=== PATIENT | male | born 1960 | race Caucasian/White ===

== ENCOUNTER 2018-10-24 10:00 | Observation (INO) | payer BC, OTHER ==
--- NOTE | 2018-10-24 10:33 | ED.PDOC ---
History of Present Illness - General Chief Complaint: GI Problem Stated Complaint: vomitting, excessive weight loss Time Seen by Provider: 10/24/18 10:27 Information Source: patient - History of Present Illness Initial Comments: THIS PATIENT COMES FROM THE CLINIC. HE HAS BEEN HAVING VOMITING AND DIARRHEA SINCE SATURDAY, AVERAGE 7 EPISODES OF VOMITING PER 24 HRS AND ABOUT FOUR EPISODES OF DIARRHEA PER 24 HRS. THIS IS ASSOCIATED WITH INTERMITTENT ABDOMINAL PAIN AND LOWGRADE FEVER. HE VOICES POST PRANDIAL EMESIS WELL AND THE CLINIC NOTED AN 18 POUND WEIGHT LOSS SINCE HIS LAST VISIT 3 WEEKS. AGO. 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 THE PATIENT WAS GIVEN ZOFRAN SUBLINGUAL AND WAS SENT TO THE ED FOR EVALUATION. LABORATORY WAS ALSO OBTAINED AT THE CLINIC: CBC; WBC-10.6, 73 % NEUTROPHILS, HB OF 15.5. CREATININE OF 0.8, BUN OF 21, CO2 OF 26. THE PATIENT HAS A LEFT HIP REPLACEMENT AND CHRONIC BACK PAIN - ON PAIN MANAGEMENT BY DR. MATA Abdominal Pain Onset Location: generalized abdomen Pain Radiation: no radiation Quality: cramping, intermittent Timing/Duration: days Improving Factors: nothing Worsening Factors: eating Associated Symptoms: diarrhea, nausea/vomiting Review of Systems - Review of Systems Constitutional: States: fever, weakness EENTM: States: no symptoms reported Respiratory: States: no symptoms reported Cardiology: States: no symptoms reported Gastrointestinal/Abdominal: States: abdominal pain, diarrhea, vomiting Genitourinary: States: no symptoms reported Musculoskeletal: States: no symptoms reported Skin: States: no symptoms reported Neurological: States: no symptoms reported Endocrine: States: no symptoms reported Hematologic/Lymphatic: States: no symptoms reported Past Medical History (General) - Patient Medical History Hx Stroke: No Hx of COPD: No Hx Cardiac Disorders: Yes - aortic valve replacement Hx Congestive Heart Failure: No Hx Diabetes: No Surgical History: other - Vaccination History Hx Tetanus, Diphtheria Vaccination: No Hx Influenza Vaccination: No Hx Pneumococcal Vaccination: No Immunizations Up to Date: No - Social History Hx Tobacco Use: Yes Hx Alcohol Use: No Hx Substance Use: No Hx Substance Use Treatment: No Hx Depression: No Family Medical History - Family History Mother Family History: Unknown Living Status: Father Family History: Unknown Living Status: Physical Exam - Physical Exam General Appearance: Alert, No apparent distress, Well Developed, Well Groomed, Well Hydrated Eyes, Ears, Nose, Throat Exam: PERRL/EOMI Neck: non-tender Respiratory: chest non-tender Cardiovascular/Chest: normal peripheral pulses, regular rate, rhythm Gastrointestinal/Abdominal: normal bowel sounds, soft, no organomegaly, no pulsatile mass Back Exam: normal inspection Extremity: normal range of motion Skin Exam: normal color Progress - Progress Progress: 10/24/18 11:03 CASE DISCUSSED WITH ANDREWS TAPIA - WILL OBSERVE OVERNIGHT FOR INTRACTABLE VOMIT AND WEIGHT LOSS. Departure - Departure Clinical Impression: Gastroenteritis Intractable vomiting Qualifiers: Vomiting type: unspecified Nausea presence: with nausea Qualified Code(s): R11.2 - Nausea with vomiting, unspecified Disposition: Admit Patient Condition: Good Home Medications: Ambulatory Orders Gabapentin 400 mg PO DAILY PRN 10/24/18 HYDROcodone 10MG/APAP 325MG [Megargel 10/325] 1 tablet PO DAILY PRN 10/24/18 Zolpidem Tartrate 10 mg PO DAILY 10/24/18 Decision To Admit - Decistion To Admit Decision to Admit Date: 10/24/18 Decision to Admit Time: 11:01
[2018-10-24] MEDS ORDERED: SODIUM CHLORIDE 0.9% 1000ML 1,000 ML IVS ONE (10:47)
[2018-10-24] MEDS ORDERED: fentaNYL CITRATE INJ 50 MCG/ML AMP IV ONE (11:07)
--- NOTE | 2018-10-24 13:19 | HP ---
SUPERVISING PHYSICIAN: Ky Jackson M.D. CHIEF COMPLAINT: Nausea and vomiting times 1 week. HISTORY OF PRESENT ILLNESS: This is a 58 year-old male patient that was sent to the Emergency Room from Dr. Canada's office. He had been having vomiting and diarrhea since Saturday. He averaged about 7 episodes of vomiting every 24 hours and about 4 episodes of diarrhea for 24 hours. His last episode of diarrhea was yesterday. He did complain of a low-grade fever as well as abdominal pain that came and went. It was cramping and stabbing pain. It was noted at the clinic that he has lost 18 pounds in about 3 to 4 weeks. He does have a history of aortic stenosis and underwent an aortic valve replacement in 2011. It is a porcine valve so he is not on any anticoagulation. In the E. R., he got some fluids as well as some antiemetics. He did receive some pain medication for the pain in his lower back and his hip. His initial vital signs were temperature 99.1, heart rate 73, blood pressure 139/82, respiratory rate 20, O2 sat 96% on room air. Laboratory in the Emergency Room showed a urinalysis that was within normal limits but he did have lab work done at the clinic and at the clinic his glucose was 121, BUN 21, creatinine 0.8, sodium 142, potassium 3.3, chloride 105, CO2 of 26. Alkaline phosphatase 73, ALT 119, AST 33. Total bilirubin 1. CBC was basically unremarkable. I was called for admission to the hospital. PAST MEDICAL HISTORY: 1. Aortic stenosis. 2. Degenerative disc disease mostly in his back. 3. Low back pain on chronic pain medication being followed by Dr. Canada. 4. Osteoarthritis of the hip. PAST SURGICAL HISTORY: 1. Aortic valve replacement in 2009. 2. Left hip replacement in 2014. CURRENT MEDICATIONS: ALLERGIES: CRESTOR. SOCIAL HISTORY: He lives in [place]. He is a heavy truck technician. He smokes approximately 1 pack of cigarettes per day. He denies any ETOH or illicit drug use. REVIEW OF SYSTEMS: GENERAL: Positive for fatigue and fever as well as an 18 pound weight gain in less than 1 month. HEENT: Negative for sinus symptoms, ear pain, vision changes or sore throat. RESPIRATORY: Negative for shortness of breath, coughing or wheezing. CARDIAC: Negative for chest pain, palpitations or tachycardia. GASTROINTESTINAL: As per History of Present Illness. GENITOURINARY: Negative for hematuria, dysuria or polyuria. MUSCULOSKELETAL: Positive for left hip pain and chronic low back pain. Negative for myalgias or arthralgias. NEUROLOGIC: Positive for dizziness. Negative for headache or seizures. PHYSICAL EXAMINATION: VITAL SIGNS: GENERAL: HEENT: NECK: CHEST: CARDIOVASCULAR: ABDOMEN: EXTREMITIES: NEUROLOGIC: RECTAL: LABORATORY: As per history of present illness. RADIOLOGY: Abdominal x-ray shows visualized portion of the thorax is unremarkable. Nondilated bowel gas pattern is present. There is moderate colonic stool within the distal colon. There is no pathological calcification overlying the renal shadows or expected course of ureters. No free intraperitoneal air, portal venous gas or pneumatosis is present. Phleboliths are within the right hemipelvis. Mid lumbar spondylosis with slight dextro curvature centered at L2 without lateral flexion. Total left hip arthroplasty. ASSESSMENT: 1. Nausea, vomiting and diarrhea times 1 week most likely due to viral gastroenteritis. 2. Dehydration secondary to #1. 3. History of aortic stenosis status post aortic valve replacement with porcine valve. 4. Left hip pain with osteoarthritis. 5. Chronic pain syndrome, mostly back. He sees Dr. Canada for pain management. 6. Constipation. PLAN: We will place the patient in observation. We will give him fluids overnight as well as antiemetics. I have held his home medications for now due to putting him on bowel rest. He will be NPO until tomorrow morning. At that time if he has had no nausea or vomiting overnight, will start him on clear liquids and advance his diet as tolerated. I will repeat some lab in the morning. Most likely he will be able to be discharged tomorrow or the next day after adequate hydration. #[id number] [facility]
[2018-10-24] MEDS ORDERED: LEVALBUTEROL NEBS 1.25 MG/3 ML VIAL INH PRN (13:57)
[2018-10-24] MEDS ORDERED: ONDANSETRON INJ 4 MG/2 ML VIAL IV PRN (13:57)
[2018-10-24] MEDS ORDERED: ACETAMINOPHEN 325 MG TAB PO PRN (13:57)
[2018-10-24] MEDS ORDERED: PANTOPRAZOLE SODIUM IV 40 MG VIAL IV SCH (14:00)
[2018-10-24] MEDS ORDERED: IV SET AND CAP CHANGE INJ INJ SCH (14:00)
--- NOTE | 2018-10-24 14:41 | RAD ---
EXAM DESCRIPTION: Abdomen Flat Upright CLINICAL HISTORY: 58 years Male, abd pain COMPARISON: None. TECHNIQUE: 2 views of the abdomen. IMPRESSION: Visualized portions of the thorax are unremarkable. Nondilated bowel gas pattern is present. There is moderate colonic stool within the distal colon. There is no pathologic calcification overlying the renal shadows or expected course of the ureters. No free intraperitoneal air, portal venous gas, or pneumatosis is present. Phleboliths are within the right hemipelvis. Mild lumbar spondylosis with slight dextro curvature centered at L2 without lateral flexion. Total left hip arthroplasty. Electronically signed by: Ramses Gan MD 10/24/2018 2:37 PM [facility]
[2018-10-24] MEDS: KCL 20MEQ/D5 1/2NS 1,000 ML IVS PRN ×2 (15:17→16:21)
[2018-10-24] MEDS: fentaNYL CITRATE INJ 50 MCG/ML AMP IV PRN ×2 (15:18→19:54)
[2018-10-24] MEDS: SODIUM CHLORIDE 0.9% (FLUSH) 10 ML SYG IV PRN (15:18)
[2018-10-24] MEDS ORDERED: SUCCINYLCHOLINE CHLORIDE 200 MG/10 ML VIAL ONE (16:40)
[2018-10-24] MEDS: LEVALBUTEROL NEBS 1.25 MG/3 ML VIAL INH SCH (20:40)
[2018-10-24] MEDS: SODIUM CHLORIDE 0.9% (FLUSH) 10 ML SYG IV SCH (20:46)
[2018-10-24] MEDS ORDERED: ENOXAPARIN SODIUM 40 MG/0.4 ML SYG SUBCU SCH (21:00)
[2018-10-25] MEDS: KCL 20MEQ/D5 1/2NS 1,000 ML IVS PRN ×2 (00:02→08:00)
[2018-10-25] MEDS: fentaNYL CITRATE INJ 50 MCG/ML AMP IV PRN ×2 (05:28→09:37)
[2018-10-25 06:32] VITALS: TEMP 98.5
[2018-10-25] MEDS: SODIUM CHLORIDE 0.9% (FLUSH) 10 ML SYG IV SCH (08:42)
[2018-10-25] MEDS: LEVALBUTEROL NEBS 1.25 MG/3 ML VIAL INH SCH (08:43)
[2018-10-25 09:28] VITALS: O2SAT 98
[2018-10-25] MEDS: SODIUM CHLORIDE 0.9% (FLUSH) 10 ML SYG IV PRN (09:38)
[2018-10-25] MEDS ORDERED: ZOLPIDEM TARTRATE 10 MG TAB PO PRN ×2 (10:00→10:30)
[2018-10-25] MEDS ORDERED: GABAPENTIN 400 MG CAP PO SCH (10:00)
[2018-10-25] MEDS ORDERED: HYDROcodone 10MG/APAP 325MG 1 EA TAB PO PRN (10:00)
[2018-10-25 10:51] VITALS: BP 114/66
--- NOTE | 2018-10-25 11:52 | DS ---
DISCHARGE DIAGNOSIS: 1. Persistent gastroenteritis. 2. Dehydration. 3. Constipation evident by x-ray. 4. History of aortic stenosis status post aortic valve replacement with porcine valve. 5. Left hip pain with osteoarthritis. 6. Chronic pain syndrome, back and hip. 7. Chronic tobacco abuse. HISTORY OF PRESENT ILLNESS: This patient was sent over to the hospital from the clinic. He presented to the clinic where he had had multiple episodes of vomiting daily for about a week and several episodes of diarrhea for a week. He was not having high fevers, but did have a 99.1 at the office. He had lab work done at the clinic which showed a glucose of 121, BUN 21, creatinine 0.8, sodium 142, potassium 3.3. ALT was 119 and AST 33, bilirubin 1. CBC was unremarkable. HOSPITAL COURSE: The patient was admitted to the hospital. He was hydrated with IV fluids aggressively. His symptoms improved dramatically. He was given Zofran for nausea and vomiting. His chronic pain symptoms were controlled with Fentanyl as he was unable to take his oral medications initially. After overnight fluids he is feeling much better this morning. He has been able to tolerate his medicines and tolerating a really bland diet and that will be advanced at lunch to soup and crackers. If he tolerates that he will be discharged home. CBC was repeated today and is unremarkable. Electrolytes were not repeated. The patient's vital signs are stable and he is feeling better. Has been able to ambulate without dizziness or weakness. He has had no more vomiting and no more diarrhea. He had a solid formed stool this morning and he is feeling like he can go home. DISPOSITION: This patient will be discharged home. He will followup with me later this week. He will continue on a bland diet for the next 24 hours and then he can gradually increase back to his normal diet. If his symptoms worsen he is report back to the Emergency Room. He will be advised to use MiraLAX daily for the next 2 weeks. He will be sent home with some extra Zofran just in case he has some mild nausea, but if he has more severe nausea or vomiting he is to come back to the Emergency Room. #[id number] [facility]
== END 2018-10-25 13:43 | disposition home or self-care (01) ==
LOC: ER 10:00 → MS 13:18
PROVIDERS: ADMIT Nurse Practitioner Acute Care; ATTEND Family Medicine
DX: K52.9 Noninfective gastroenteritis and colitis, unspecified (principal); E86.0 Dehydration; K59.00 Constipation, unspecified; G89.4 Chronic pain syndrome; F17.210 Nicotine dependence, cigarettes, uncomplicated; M54.5 Low back pain; R63.4 Abnormal weight loss; Z95.3 Presence of xenogenic heart valve; Z96.642 Presence of left artificial hip joint; Z88.8 Allergy status to other drugs, medicaments and biological substances; Z68.30 Body mass index [BMI] 30.0-30.9, adult
CPT/HCPCS: 96361 ×2; 96374; 96375; 96376 ×2; 96372; J3010 ×5; J7030; J1650; J7614 ×2; 36415; 81001; 85025; 74019; 94640 ×2; 94760 ×2; 99285; G0378